=== PATIENT | female | born 1980 | race Caucasian/White ===

== ENCOUNTER 2022-02-26 16:18 | Outpatient (CLI) | payer BC, SELFPAY ==
[2022-02-26 16:58] LABS: Glucose* 91 mg/dL (60-115)
[2022-02-26 20:14] LABS: Free T4 Free Thyroxine* 0.93 ng/dL (0.70-1.85)
[2022-02-27 14:00] LABS: Iron* 24 ug/dL (37-170)
[2022-02-27 14:09] LABS: Percent Iron Saturation 4 % (20-50); Total Iron Binding Capacity 536 ug/dL (265-497)
[2022-02-27 14:36] LABS: Ferritin* 5.1 ng/mL (6.24-137.0)
== END 2022-02-26 16:19 | disposition home or self-care (01) ==
PROVIDERS: PCP Family Medicine; Visit Provider Registered Nurse
DX: Z01.419 Encounter for gynecological examination (general) (routine) without abnormal findings (principal); N92.0 Excessive and frequent menstruation with regular cycle
CPT/HCPCS: 82728; 82947; 83540; 83550; 84439; 84443

== ENCOUNTER 2022-03-07 13:53 | Outpatient (CLI) | payer BC, SELFPAY ==
--- NOTE | 2022-03-07 14:00 | CRLHL7_ITS ---
For Patients: As a result of the Century Cures Act, medical imaging exams and procedure reports are released immediately into your electronic medical record. You may view this report before your referring provider. If you have questions, please contact your health care provider. INDICATION: Menorrhagia COMPARISON: 07/13/2018 TECHNIQUE: 2D galo scale and color Doppler images were acquired of the pelvis using a transabdominal and transvaginal approach. FINDINGS: Sonographic images demonstrate an enlarged size and lobular outer contour of the uterus. Uterus measures 12.1 cm in length by 6.0 cm in AP diameter by 8.8 cm in transverse dimension. The myometrium has a heterogeneous echotexture. Anterior mid uterine fibroid measuring 3.9 x 3.5 x 3.6 cm. Lower uterine segment fibroid measuring 1.1 x 0.7 x 1.1 cm. Small fundal fibroid measuring 1.5 x 1.3 x 1.3 cm. Posterior uterine fibroid which abuts the endometrium measuring 5.9 x 4.8 x 5.2 cm. The size and number of the fibroids has increased since the prior exam. The endometrial lining measures 14 mm in composite thickness. The right ovary measures 3.4 x 1.7 x 2.5 cm in size and the left ovary measures 3.0 x 1.6 x 2.5 cm. The ovaries demonstrate normal arterial and venous blood flow on color Doppler analysis. There are no suspicious fluid collections within the cul-de-sac. IMPRESSION: Multiple uterine fibroids which have increased in size and number since the prior examination. The largest now measures 5.9 cm and abuts the endometrium which is thickened and measures 14 millimeters. Dictated by Pedro Linton MD @ 03/08/2022 8:31:57 AM (Electronically Signed)
== END 2022-03-07 13:54 | disposition home or self-care (01) ==
PROVIDERS: PCP Family Medicine; Visit Provider Registered Nurse
DX: N92.0 Excessive and frequent menstruation with regular cycle (principal); D25.9 Leiomyoma of uterus, unspecified
CPT/HCPCS: 76830; 76856

== ENCOUNTER 2022-07-08 13:48 | Outpatient (CLI) | payer OTHER, SELFPAY ==
--- NOTE | 2022-07-08 14:00 | CRLHL7_ITS ---
For Patients: As a result of the Century Cures Act, medical imaging exams and procedure reports are released immediately into your electronic medical record. You may view this report before your referring provider. If you have questions, please contact your health care provider. BILATERAL SCREENING MAMMOGRAM WITH COMPUTER-AIDED DETECTION TECHNIQUE: CC and MLO views were obtained. These mammographic images have been obtained using full-field digital technique. These mammographic images were interpreted with the benefit of computer-aided detection. COMPARISON FILM: 05/17/18 ??? LEFT FINDINGS: The breasts are heterogeneously dense, which may obscure small masses IMPRESSION: There is no radiographic evidence for malignancy. ASSESSMENT: BI-RADS Category 1: Negative RECOMMENDATION: Routine screening mammogram in 1 year. A lay language report of this examination will be provided to the patient. Pedro Linton M.D. Diagnostic Radiologist [email or web address] ELIAZAR/ronny jefferson/Dictated by: Pedro Linton MD @ 07/09/2022 10:11:00 AM (Electronically Signed)
== END 2022-07-08 13:49 | disposition home or self-care (01) ==
LOC: MAMMO 13:49
PROVIDERS: PCP Family Medicine; Visit Provider Registered Nurse
DX: Z12.31 Encounter for screening mammogram for malignant neoplasm of breast (principal); R92.2 Inconclusive mammogram
CPT/HCPCS: 77063; 77067

== ENCOUNTER 2023-02-26 08:05 | Day surgery (SDC) | payer OTHER, SELFPAY ==
[2023-02-26 08:17] VITALS: BMI 30.3
[2023-02-26 08:27] VITALS: BP 128/62; PULSE 78; RESP 16; TEMP 36.6; O2SAT 99
[2023-02-26] MEDS: SODIUM CHLORIDE 0.9 % (FLUSH) 10 ML SYRINGE IVF (08:28)
[2023-02-26] MEDS: LACTATED RINGERS 1000 ML 1,000 ML 100 ML IV (08:28)
[2023-02-26 08:40] LABS: Hemoglobin* 8.9 gm/dL (12.0-16.0)
[2023-02-26 08:52] LABS: Ur HCG Qualitative* Negative (Negative)
--- NOTE | 2023-02-26 09:56 | W.PM.H&PU ---
History & Physical Update History & Physical Update H&P Reviewed and patient assessed: The following changes are noted below H&P Updates: Kiersten reports no interval changes to her health history since the last time we spoke. Her hgb this AM was 8.9 gm/dl. This is a drop from 9.6 gm/dl last year. Patient does not endorse any symptoms of anemia such as fatigue, SOB, lightheadedness or dizziness. She feels that she is in her normal state of health. I suspect that this is due to the chronic nature of her anemia. She has not been taking her iron as prescribed. I encouraged her to take her PO iron every other day for at least a month, then we can reassess. Hopefully, with the endometrial ablation, she will have significant decrease in her bleeding. Physical exam: General: No acute distress Psych: Alert and oriented x3, full affect HEENT: Normocephalic, atraumatic. No conjunctival pallor. Lungs: Unlabored breathing CV: normal capillary refills bilaterally Neuro: No focal deficit. Mentating appropriately Pelvic exam: Deferred to OR.
--- NOTE | 2023-02-26 10:04 | W.ANESCHARGE ---
Anesthesia Charges Start Date/Time Anesthesia Start Date: 02/26/23 Anesthesia Start Time: 09:45 Stop Date/Time Anesthesia Stop Date: 02/26/23 Anesthesia Stop Time: 11:03
[2023-02-26 11:00] VITALS: BP 124/66; PULSE 81; RESP 16; TEMP 36.6; O2SAT 100
--- NOTE | 2023-02-26 11:02 | W.ANESCHARGE ---
Anesthesia Charges Start Date/Time Anesthesia Start Date: 02/26/23 Anesthesia Start Time: 09:45 Stop Date/Time Anesthesia Stop Date: 02/26/23 Anesthesia Stop Time: 11:03
[2023-02-26 11:15] VITALS: BP 122/76; PULSE 65; RESP 16; O2SAT 96
--- NOTE | 2023-02-26 11:22 | P.GYNPRC_ITS ---
Procedure Note Time Seen by Provider: 09:30 Date of procedure: 02/26/23 Anesthesia: MAC and local Surgeon: Jewels Vides MD Pathology: specimen obtained, sent to pathology (Endometrial curretting (endomemetrial polyp)) Condition: stable Disposition: PACU Procedure Description: Preoperative diagnosis: Kiersten is a 43 yo with abnormal uterine bleeding 2/2 to leiomyomas and possible adenomyosis. Postoperative diagnosis: Same with the addition of uterine fibroids. Procedure: Hysteroscopy, dilation and curettage, polypectomy, endometrial a blation. Anesthesia: Mac and paracervical block. Surgeon: Jewels Vides MD Assist: None Estimated blood loss: 5 mL IV Fluid: 600 mL Fluid deficit: 110 mL Urine output: 50 mL Specimen: Endometrial curettings, sent to path. Findings: On exam under anesthesia: The cervix and vagina appear normal. The uterus was anterior position, approximately 7 week size, mobile and without masses or nodularity palpable. Adnexa were without mass or fullness palpable bilaterally. On hysteroscopy: Anterior polyp noted near the left cornua and polyp noted posterior uterine cavity near endometrial canal. No other abnormalities noted. The uterus sounded to 9.5 cm. Cervical length 5 cm. Cavity length: 4.5. Procedure: Kiersten was taken to the operating room where conscious sedation was found to be adequate. She was placed in a dorsal lithotomy position and an exam under anesthesia was performed with the findings stated above. She was then prepped and draped in a normal sterile manner. An a bivalve is sterile speculum was placed in the vaginal canal. A paracervical block was placed using 1% lidocaine with epi: 5 mL were injected at the 4 and 8 o'clock positions on the cervix - 10 cc total. A long tenaculum clamp was placed on the anterior lip of the cervix. The cervix was then dilated to Hegar 6. Uterus sounded to 9.5 cm. The cervix measured 5 cm. There for the cavity length was 4.5 cm. The Truclear hysteroscope was advanced into the uterus. A diagnostic hysteroscopy performed with normal saline as the insufflation medium. Findings are stated above. The Truclear soft tissue incisor was then advanced into the camera. And the curettage/polypectomy performed with this incisor. The curettage took approximately 3 min. The cavity appeared normal once the curettage was performed completed. The hysteroscope was removed. The cervix was then dilated to Hegar 8. The Jennifer device was advanced into the uterus. The cavity check was completed and the ablation took place over 2 min. Patient received 30 mg of Toradol IV after the procedure. The Jennifer was removed, the hysteroscope readvanced to document ablation of the entire cavity. The hysteroscope was then removed. The tenaculum clamp removed from the anterior lip of the cervix. Hemostasis was excellent. The patient tolerated this procedure well. Sponge, lap and instrument counts were correct x2 at the end of the procedure and the patient was taken to the recovery area in stable condition.
[2023-02-26 11:30] VITALS: BP 114/75; PULSE 59; RESP 16; O2SAT 96
[2023-02-26 11:45] VITALS: BP 113/78; PULSE 60; RESP 16; O2SAT 97
== END 2023-02-26 12:05 | disposition home or self-care (01) ==
LOC: OR 08:05
PROVIDERS: PCP Family Medicine; Visit Provider Obstetrics & Gynecology
PROC: 0UF98ZZ Fragmentation in Uterus, Via Natural or Artificial Opening Endoscopic (ICD-10-PCS; CPT 58563; principal; 2023-02-26 09:30)
DX: N93.8 Other specified abnormal uterine and vaginal bleeding (principal); N84.0 Polyp of corpus uteri
CPT/HCPCS: 58563; 00952; 36415; 81025; 85018; 88305; J1100; J1885; J2405; J2704; J3010; J7120

== ENCOUNTER 2023-03-03 14:41 | Outpatient (CLI) | payer OTHER, SELFPAY | END 2023-03-03 14:42 | disposition home or self-care (01) | LOC: NFLDREF 03-05 05:56 | PROVIDERS: PCP Family Medicine; Referring Provider Family Medicine; Visit Provider Registered Nurse | DX: E03.9 Hypothyroidism, unspecified (principal) | CPT/HCPCS: 84439; 84443 ==

== ENCOUNTER 2023-04-09 15:03 | Outpatient (CLI) | payer BC, SELFPAY ==
--- NOTE | 2023-04-20 09:23 | ONC.NURNOTE ---
left message for patient to schedule IV INFed. Unable to reach patient.
== END 2023-04-09 15:04 | disposition home or self-care (01) ==
LOC: NFLDREF 04-16 11:09
PROVIDERS: PCP Family Medicine; Referring Provider Family Medicine; Visit Provider Registered Nurse
DX: E03.9 Hypothyroidism, unspecified (principal)
CPT/HCPCS: 82728; 84443

== ENCOUNTER 2023-05-18 10:00 | Outpatient (RCR) | payer BC, SELFPAY ==
--- NOTE | 2023-04-20 13:40 | URNOTE ---
Request received for authorization for?Iron Dextran (Infed) ([id number]). Prior authorization is not required per [facility] Ref#[id number], date range: 04/15/2023 to 05/28/2023.
[2023-05-18] VITALS (7 sets, daily range): BP systolic 93–112; BP diastolic 60–68; PULSE 57–77; RESP 16–18; TEMP 36.6–37.6; O2SAT 96–99
[2023-05-18] MEDS: IRON DEXTRAN COMPLEX 25 MG in 0.9 % SODIUM CHLORIDE 100 ml 100 ML 402 MG IVPB (10:34)
[2023-05-18] MEDS: IRON DEXTRAN COMPLEX 975 MG in 0.9 % SODIUM CHLORIDE 250 ml 250 ML 269.5 MG IVPB (12:07)
== END 2023-11-14 23:59 | disposition home or self-care (01) ==
LOC: CCIC 10:00
PROVIDERS: PCP Family Medicine; Visit Provider Clinical Nurse Specialist
DX: D50.9 Iron deficiency anemia, unspecified (principal)
CPT/HCPCS: 96365; 96366; J1750; J7050

== ENCOUNTER 2023-07-28 14:47 | Outpatient (CLI) | payer BC, SELFPAY ==
--- NOTE | 2023-07-28 15:00 | MM_ITS ---
Patient: HERB MCWILLIAMS Facility:?[facility] Patient ID:?[id number] Site Patient ID:?[id number]. Site :?[id number] Study:?XRay-Breast Bilateral 3D W/CAD-07/28/2023 3:09:43 PM Ordering Physician:Jewels Ann Final Report: BILATERAL SCREENING MAMMOGRAM WITH COMPUTER-AIDED DETECTION AND TOMOSYNTHESIS TECHNIQUE: CC and MLO views were obtained. These mammographic images have been obtained using full-field digital technique. These mammographic images were interpreted with the benefit of computer-aided detection. Breast Tomosynthesis was used in this interpretation. COMPARISON FILM: 07/08/22, 05/17/18. FINDINGS: The breasts are extremely dense, which lowers the sensitivity of mammography. IMPRESSION: There is no radiographic evidence for malignancy. ASSESSMENT: BI-RADS Category 1: Negative RECOMMENDATION: Routine screening mammogram in 1 year. A lay language report of this examination will be provided to the patient. Pedro Linton M.D. Diagnostic Radiologist [email or web address] ELIAZAR/sp R& Transcribed: 5:35 p.m. SP/Dictated by: Pedro Linton MD @ 07/29/2023 10:07:00 AM Signed by:?Pedro Linton MD @07/29/2023 6:52:54 PM (Electronic Signature)
== END 2023-07-28 14:48 | disposition home or self-care (01) ==
LOC: MAMMO 14:49
PROVIDERS: Visit Provider Obstetrics & Gynecology
DX: Z12.31 Encounter for screening mammogram for malignant neoplasm of breast (principal); R92.2 Inconclusive mammogram
CPT/HCPCS: 77063; 77067

== ENCOUNTER 2024-06-17 13:18 | Outpatient (CLI) | payer BC, SELFPAY | END 2024-06-17 13:19 | disposition home or self-care (01) | PROVIDERS: Visit Provider Obstetrics & Gynecology | DX: D64.9 Anemia, unspecified (principal); E03.9 Hypothyroidism, unspecified | CPT/HCPCS: 83540; 83550; 84443; 87624; 87625; 88141; 88142 ==

== ENCOUNTER 2024-07-07 15:08 | Outpatient (CLI) | payer BC, SELFPAY ==
[2024-07-11 13:00] LABS: HPV Source Cervical; HPV, High Risk by TMA Not Detected
== END 2024-07-07 15:09 | disposition home or self-care (01) ==
PROVIDERS: Visit Provider Obstetrics & Gynecology
DX: Z12.4 Encounter for screening for malignant neoplasm of cervix (principal); Z11.51 Encounter for screening for human papillomavirus (HPV)
CPT/HCPCS: 87624; 87625; 88141; 88142

== ENCOUNTER 2024-08-15 14:44 | Outpatient (CLI) | payer BC, SELFPAY ==
--- NOTE | 2024-08-15 15:00 | CRLHL7_ITS ---
For Patients: As a result of the Century Cures Act, medical imaging exams and procedure reports are released immediately into your electronic medical record. You may view this report before your referring provider. If you have questions, please contact your health care provider. INDICATION: BILATERAL SCREENING MAMMOGRAM, ASYMPTOMATIC 44 Y/O FEMALE COMPARISON: 07/28/2023, 07/08/2022, 05/17/2018 TECHNIQUE: Digital mammogram in CC and MLO projections including computer-aided detection (CAD) and tomosynthesis. BREAST COMPOSITION: The breasts are heterogeneously dense, which may obscure small masses. FINDINGS: No suspicious findings. ASSESSMENT: BI-RADS 1 Negative RECOMMENDATION: Annual screening mammogram. A lay language report of this examination will be provided to the patient. Dictated by: Pedro Linton MD @ 08/16/2024 08:34:06 (Electronically Signed)
== END 2024-08-15 14:45 | disposition home or self-care (01) ==
LOC: MAMMO 14:44
PROVIDERS: Visit Provider Obstetrics & Gynecology
DX: Z12.31 Encounter for screening mammogram for malignant neoplasm of breast (principal); R92.333 Mammographic heterogeneous density, bilateral breasts
CPT/HCPCS: 77063; 77067

== ENCOUNTER 2024-09-14 08:28 | Day surgery (SDC) | payer BC, SELFPAY ==
[2024-09-14] VITALS (21 sets, daily range): BP systolic 113–141; BP diastolic 62–93; PULSE 61–86; RESP 13–19; TEMP 36.3–37.4; O2SAT 93–100; BMI 25.9
[2024-09-14 08:52] LABS: Ur HCG Qualitative* Negative (Negative)
[2024-09-14] MEDS: SODIUM CHLORIDE 0.9 % (FLUSH) 10 ML SYRINGE IVF (09:24)
[2024-09-14] MEDS: SCOPOLAMINE 1 MG/3 DAY PATCH 1 PATCH TRANSDERMA (09:24)
[2024-09-14] MEDS: GABAPENTIN 600 MG TABLET PO (09:24)
[2024-09-14] MEDS: ACETAMINOPHEN 500 MG TABLET 1000 MG PO (09:24)
[2024-09-14] MEDS: LACTATED RINGERS 1000 ML 1,000 ML 100 ML IV ×3 (09:24→14:11)
[2024-09-14 09:27] LABS: Hemoglobin* 11.7 gm/dL (12.0-16.0)
[2024-09-14 09:48] LABS: Creatinine* 0.8 mg/dL (0.5-1.5); Est. Creatinine Clearance* 99.06; Estimated Glomerular Filt Rate 94 ml/min
--- NOTE | 2024-09-14 10:50 | W.PM.H&PU ---
History & Physical Update History & Physical Update H&P Reviewed and patient assessed: No changes noted H&P Updates: Current on her menstrual cycle. Reports heavy bleeding. Last 2 cycles have been manageable due to TXA but did not take for this cycle.
[2024-09-14] MEDS: CEFAZOLIN 1 GM inj 2 GM IVP (11:03)
[2024-09-14] MEDS: LIDOCAINE 1%-EPI 1:100,000 20 ML INFILTRATI (12:02)
--- NOTE | 2024-09-14 12:23 | P.ANES_ITS ---
Anesthesia Charges Start Date/Time Anesthesia Start Date: 09/14/24 Anesthesia Start Time: 10:52 Stop Date/Time Anesthesia Stop Date: 09/14/24 Anesthesia Stop Time: 15:02 Coding CPT Codes CPT Codes: ANESTH SURG LOWER ABDOMEN - 63690 ([id number]) P2 - PATIENT W/MILD SYST DISEASE, QK - TNT POWDER WORKER 2-4 CNCRNT ANES PROC, QX - FIFTH GRADE TEACHER SVC W/ MD MED DIRECTION
--- NOTE | 2024-09-14 12:23 | W.ANESCHARGE ---
Anesthesia Charges Start Date/Time Anesthesia Start Date: 09/14/24 Anesthesia Start Time: 10:52 Stop Date/Time Anesthesia Stop Date: 09/14/24 Anesthesia Stop Time: 15:02 Coding CPT Codes CPT Codes: ANESTH SURG LOWER ABDOMEN - 53357 ([id number]) P2 - PATIENT W/MILD SYST DISEASE, QK - UNDERGROUND UTILITY LOCATOR 2-4 CNCRNT ANES PROC, QX - VEHICLE DETAILER SVC W/ MD MED DIRECTION
--- NOTE | 2024-09-14 12:23 | W.PM.NB ---
Nerve Block Nerve Block Time Seen by Provider: 11:00 Date Seen: 09/14/24 Type of block requested by surgeon for post-operative analgesia: TAP Side: bilateral Time out performed: Yes Verification of patient name: Yes Verification of date of : Yes Site marking: site marked Name of person performing procedure: Emir Continuous monitoring Was continuous monitoring of O2 sat, B/P, registered nurse cardiac, recorded every 15 minutes?: Yes Procedure Checklist: sterile prep, needles and gloves Ultrasound guided. Images saved: Yes Medications given in 5ml increments after negative aspiration: Marcaine %: 0.25 mL: 30 Needle gauge: 20 and Exparel mL: 10 Patient tolerated procedure well: Yes Additional comments: Needle noted between internal oblique and transversus abdominus. Local spread visualized Block Charges Block Charge (with Pro Fee): TAP Bilateral Use of Ultrasound Machine for Block: Yes- US Guidance/pain block
--- NOTE | 2024-09-14 14:57 | P.PCNOB_ITS ---
Procedure Type of Hysterectomy: Total Laparoscopic Pre-op/Post-op diagnoses: Pre-Op/Post-Op Diagnoses Operation Date: 09/14/24 09:45 <No data on this case meets the specified criteria> Procedure: Procedures Operation Date: 09/14/24 09:45 Actual Procedure Side Surgeon p Total Laparoscopic Hysterectomy, Bilateral Salpingectomy, Cystoscopy Bilateral Jewels Vides MD Curriculum Writer: Shima Almonte Anesthesia Type: General and TAP Block Complications: none Fluids: crystalloid Fluid amount (mL): 2,400 Urine output (mL): 1,500 Weight of Uterus: 1 lb 1.108 oz Specimen: uterus, left tube and right tube Narrative: Findings: On exam under anesthesia: Normal appearing external genitalia. Normal appearing cervix. The uterus was anteverted, approximately 18 weeks size, mobile. Multiple fibroids palpated. Adnexa difficult to assess due to fibroid. On laparoscopy: Very enlarged, myomatous uterus with impressive vasculature congestion in the bilateral broad ligaments. Bilateral fallopian tubes with evidence of tubal ligation and normal ovaries. Filmy adhesions of bladder to previous hysterotomy scar. Filmy adhesions of the sigmoid colon to the left pelvic sidewall. Posterior cul-de-sac within normal limits. Normal appearing liver. Cystoscopy: The dome of the bladder was noted to be without defect and no evidence of any sutures from the vaginal cuff causing injury. Normal urine flow was noted through both ureteral orifices. Preoperative diagnosis: Kiersten is a 44-year-old 2 para 2 with abnormal uterine bleeding due to leiomyomas causing iron deficiency anemia. She failed endometrial ablation. The patient requested definitive management with a hysterectomy after discussing all possible options. Consent was signed in the office prior and all risks, benefits, and alternatives were reviewed. Postoperative diagnosis: Same Procedure: Kiersten was taken to the operating room where general anesthetic was found to be adequate. Tap block was also performed. She was placed in the dorsal lithotomy position and an exam under anesthesia was performed with findings stated above. She was then prepped and draped in a normal sterile manner. A Good catheter was placed. A bivalve speculum was placed in the vaginal canal. A long tenaculum clamp was placed on the anterior lip of the cervix, in the uterus sounded to 12 cm. A medium size Synqeraare uterine manipulator was then placed. The tenaculum clamp and speculum were removed from the cervix. Attention was then turned to performing the laparoscopic portion of the procedure. A vertical, infraumbilical 5 mm incision was made. A 5 mm trocar was then placed under direct visualization. The abdomen was then insufflated with CO2 gas to a pressure of 15 mm of mercury. The patient was then placed in steep Trendelenburg. Two pelvic ports were then placed approximately 3-4 finger breaths medial to the ischial crests. The trocar in the RLQ = 5mm, LLq = 11mm. These were placed under direct visualization. A 4th port was made in the patient's left lower quadrant, just superior medial to the left ASIS. A 5 mm Fios Kii port was inserted under direct visualization and without complication. The balloon on each of the 4 ports was inflated, holding each in place. Examination of the peritoneal cavity revealed no signs of injury from entry and findings as noted above. Attention was then turned to performing hysterectomy and bilateral salpingectomy. The left fallopian tube was grasped, dissected of the left ovary and removed with sequential pedicles using the ligasure [place] tip dissecting forceps. It was bisected at the site of the tubal stump from previous tubal ligation. Fallopian tube was removed from the abdominal cavity. The left side of the hy sterectomy was performed using the ligasure dissecting forceps. The 1st pedicles were starting with the round ligament that was cauterized and and bisected. In sequence show pedicles were formed to divide the utero-ovarian ligament. Then sequential pedicles were made through the broad ligament. The posterior leaf of the broad ligament was then divided and sequential pedicles and carried down to the level of the VCare cup. The anterior leaf of the broad ligament was then divided down to the level of the anterior aspect of the VCare cup and a bladder flap created. The uterine vessels were then skeletonized. The uterine vessels were then cauterized and divided. Then excess tissue was cleared over the top of the VCare cup using the dissecting forceps. The right salpingectomy and right side of the hysterectomy were then performed in a similar manner. The Ligasure DocDoclab pen with the spatula attachment was then used to perform the colpotomy incising around the VCare cup. The uterus was debulked vaginally and removed successfully via vaginal route as well. No vaginal lacerations noted. Vaginal occluder placed. The vaginal cuff was then reapproximated using 2-0 V lock suture in a running manner. All the pedicles and vaginal cuff were then closely visualized and hemostasis obtained with bipolar cautery using the LigaSure dissecting forceps or the DocDoclab pen with the spatula. Sanjay applied on vaginal cuff. Excellent hemostasis noted. The Good catheter was briefly removed. A diagnostic cystoscopy was performed using normal saline as the insufflation medium. Findings noted from above. Fluorescein IV was given intraoperatively to visualize the urine more easily. Good catheter was then replaced to be retained until removal on POD#1. Attention was then returned to the abdomen where hemostasis was verified. The CO2 pressure decreased to 5mmHG and hemostasis verified. The fascia in the LLQ incision was approximated with 0-Vicryl suture using the Beau Troncoso fascial closure device. This was closed under direct visualization with the laparoscope. All trocars were removed under direct visualization. CO2 gas was allowed to escape the infraumbilical port prior to its removal. All skin incisions were re- approximated using 4-0 Monocryl in a running subcuticular manner, Exophin skin adhesive gel and adhesive bandages placed. The patient tolerated this procedure well. Sponge, lap and instrument counts were correct x2 at the end of the procedure and the patient was taken to the recovery area in stable condition. The patient received 2gm IV ancef prior to the start of the procedure and 2 g of Ancef was re-dosed at the end of the procedure due to extensive debulking performed vaginally to remove the uterus. Surgical debrief and specimen review performed.
--- NOTE | 2024-09-14 15:28 | P.ANES_ITS ---
Anesthesia Charges Start Date/Time Anesthesia Start Date: 09/14/24 Anesthesia Start Time: 10:52 Stop Date/Time Anesthesia Stop Date: 09/14/24 Anesthesia Stop Time: 15:02 Coding CPT Codes CPT Codes: ANESTH SURG UPPER ABDOMEN - 20383 ([id number]) P2 - PATIENT W/MILD SYST DISEASE, QK - RELAY TELEGRAPHER 2-4 CNCRNT ANES PROC, QX - INSTRUMENT TECHNOLOGIST SVC W/ MD MED DIRECTION
--- NOTE | 2024-09-14 15:28 | W.ANESCHARGE ---
Anesthesia Charges Start Date/Time Anesthesia Start Date: 09/14/24 Anesthesia Start Time: 10:52 Stop Date/Time Anesthesia Stop Date: 09/14/24 Anesthesia Stop Time: 15:02 Coding CPT Codes CPT Codes: ANESTH SURG UPPER ABDOMEN - 61628 ([id number]) P2 - PATIENT W/MILD SYST DISEASE, QK - DISTRICT ATTORNEY 2-4 CNCRNT ANES PROC, QX - CHIEF ARCHITECT SVC W/ MD MED DIRECTION
[2024-09-14] MEDS: LACTATED RINGERS 1000 ML 1,000 ML 40 ML IV (15:52)
[2024-09-14] MEDS: IBUPROFEN 600 MG TABLET PO ×2 (18:04→23:16)
--- NOTE | 2024-09-14 23:19 | PC.NURSE ---
shift note: The pt has been alert and oriented; denied chest pain and short of breath; Spo2 has been in the 90s in RA. The lap abdominal incision sites x4 glued and intact without any bleeding or drainage. The pt has been reporting 0-1/10 abdominal pain- the pt pain had been managed with active ice. The pt are regular diet- tolerated the diet well without any nausea or vomiting. The pt was up to chair and sat in the chair for 1 hour plus - tolerated the activity without any issues. Good is patent draining 1150 ml of yellowish urine. The pt appeared without any acute distress
[2024-09-15 02:41] VITALS: BP 120/72; PULSE 69; RESP 16; TEMP 37.2; O2SAT 98
[2024-09-15] MEDS: IBUPROFEN 600 MG TABLET PO ×2 (04:51→10:12)
--- NOTE | 2024-09-15 05:31 | PC.NURSE ---
Shift note: Patient is doing well ambulating independently in room and SBA in hallway. No pain reported since 1899. Scheduled Ibuprofen given. LAP sites intact, clean and dry. Active bowel sound. Pt denied passing gas. Good intact and draining light yannick colored clear urine. Vitally stable. Patient had adequate sleep.
[2024-09-15 07:00] VITALS: PULSE 67; RESP 16
[2024-09-15 07:20] LABS: Hemoglobin* 10.2 gm/dL (12.0-16.0)
[2024-09-15 07:45] LABS: Creatinine* 0.8 mg/dL (0.5-1.5); Est. Creatinine Clearance* 99.06; Estimated Glomerular Filt Rate 94 ml/min
--- NOTE | 2024-09-15 08:30 | P.DS_ITS ---
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 Indication for surgery: Fibroid uterus, likely adenomyosis, menorrhagia. Intraoperative findings: On exam under anesthesia: Normal appearing external genitalia. Normal appearing cervix. The uterus was anteverted, approximately 18 weeks size, mobile. Multiple fibroids palpated. Adnexa difficult to assess due to fibroid. On laparoscopy: Very enlarged, myomatous uterus with impressive vasculature congestion in the bilateral broad ligaments. Bilateral fallopian tubes with evidence of tubal ligation and normal ovaries. Filmy adhesions of bladder to previous hysterotomy scar. Filmy adhesions of the sigmoid colon to the left pelvic sidewall. Posterior cul-de-sac within normal limits. Normal appearing liver. Cystoscopy: The dome of the bladder was noted to be without defect and no evidence of any sutures from the vaginal cuff causing injury. Normal urine flow was noted through both ureteral orifices. She had an uncomplicated surgery. Reviewed surgery with patient we were able to remove uterus vaginal after removing a few fibroids to decompress the uterus. She is grateful we did not have convert to an open procedure. Postoperative course has been uneventful. She has minimal pain and very pleased with her pain control so soon after surgery. Vitals have been stable. She has remained afebrile. Today, on postoperative day 1, she reports the pain is well controlled. She has been able to ambulate Without difficulty. She is tolerating regular diet. She is passing flatus. Sorensen catheter has been removed, and she is voiding without difficulty. She will continue on her PO iron as she is anemic at 10.2 gm/dL. However, I anticipate good recovery as she will no long have ongoing blood loss. Time Spent with Patient Time attestation: Total time spent providing and/or coordinating discharge services: TEAMCENTER SOLUTION ARCHITECT - Exam Physical Exam: Vital signs: Temp Pulse Resp BP Pulse Ox O2 Del Method 99 F 69 16 120/72 98 Room Air 09/15/24 02:41 09/15/24 02:41 09/15/24 02:41 09/15/24 02:41 09/15/24 02:41 09/15/24 02:41 TEAMCENTER SOLUTION ARCHITECT - DS: Data Data Completed and Pending Labs on day of discharge: Labs from last 24 hours 09/15/24 09/14/24 09/14/24 06:48 09:18 08:30 Hgb 10.2 L 11.7 L Creatinine 0.8 0.8 Estimated Creat Clear 99.06 99.06 Estimated GFR 94 94 Urine HCG, Qual Negative Blood Type B Positive Antibody Screen NEGATIVE Procedures Procedures: Procedures Operation Date: 09/14/24 09:45 Actual Procedure Side Surgeon p Total Laparoscopic Hysterectomy, Bilateral Salpingectomy, Cystoscopy Bilateral Jewels Vides MD Complications: none Discharge Plan Discharge Disposition: Home w/ Parent or Adult Discharging Surgeon: Jewels Vides Follow-Up Appointment: 09/28/24@1245 and 10/21/24@[address] Vides Prescriptions: New acetaminophen 500 mg Tablet 1,000 mg PO Q6H PRNQty: 60 0RF docusate sodium 100 mg Capsule 100 mg PO BID PRN (Reason: Constipation) 30 Days Qty: 30 0RF ibuprofen 600 mg Tablet 600 mg PO Q6H PRN (Reason: Abdominal Pain) 30 Days Qty: 60 0RF oxycodone 5 mg Tablet 5 mg PO Q6H PRN (Reason: Moderate Pain) 14 Days Qty: 20 0RF Continued ketoconazole 2 % shampoo 1 applic topical 2XW PRN (Reason: eczema) Qty: 120 2RF levothyroxine 125 mcg tablet 125 mcg PO DAILY Qty: 90 0RF Rx Instructions: Please call the [facility] at [phone] to schedule your annual exam previous to requiring any further refills. Patient Instructions: Scopolamine (Absorbed through the skin) (Transderm Scop), Acetaminophen (By mouth), Ibuprofen (By mouth), Laxative, Stimulant (By mouth), Oxycodone, Rapid Release (By mouth), General Anesthesia (DC), Hysterectomy (DC) Additional Instructions: LAPAROSCOPY POSTOPERATIVE INSTRUCTIONS ACTIVITY Walking is encouraged, even if it is just short distances. Try to walk up to 6 times during the day. You may climb stairs as tolerated, but not for exercise. If you have a lengthy trip home after surgery, for 5 minutes or so every hour. To not participate strenuous activities, such as aerobic exercise. No heavy lifting/pushing/pulling for 4-6 weeks. Do not lift anything more than about 15 lbs (such as laundry, groceries, children, pets), vacuum, push heavy doors or grocery carts, etc. Do not put anything in the vagina for 6-8 weeks after surgery unless otherwise instructed by your doctor (including tampons, douching, sexual intercourse, etc). No driving for about 2 weeks after surgery, while you are taking narcotic pain medication, or until you feel that you are ready. Practice checking your blind spot and stepping hard on the brake. Avoid sitting or lying in bed for more than 2 hours at a time while you are awake to reduce your risk of blood clots. You may return to work when directed by your physician. Please contact your doctor if you need any return to work letters or medical leave paperwork to be completed. WOUND CARE You will have 4 small incisions on your abdomen. There will be dissolvable stitches under your skin that do not need to be removed. Shower daily after surgery. Clean your incision with mild antibacterial soap and water. Pat your incision dry with a clean towel. No tub baths until wound is completely healed. Wash your hands frequently, especially before touching your incision, changing any dressings, after using the restroom, and before eating. Avoid wearing tight clothing over your incision. Readable, loose clothing is more comfortable. Do not use hot tub, whirlpool or go swimming unless otherwise instructed by your health care provider. PAIN MANAGEMENT Take your oral pain medication as needed. You should be taking Ibuprofen 600mg every 6 hours with 1000 mg of Tylenol every 6 hours. You can take these together every six hours or alternate them every 3 hours. You should then take the oxycodone as needed if you have breakthrough pain on top of the Tylenol and Ibuprofen. Some pain medications can cause constipation so you should take a stool softener (i.e. colace/senna) while you are on these medications. You may also take milk of magnesia or Miralax for constipation. AP take narcotic medications for pain, do not: Fine Chemicals Operator operate motorized vehicles/equipment, drink alcoholic beverages, make important decision or sign legal documents. WHAT TO EXPECT AT HOME Recovery from surgery is generally 2-4 weeks, but sometimes longer for more strenuous activity. It is normal to be very tired during this time. It is normal to have some drainage or a small amount of vaginal bleeding after surgery which may last up to 8 weeks. You may go home with a sorensen catheter in your bladder. If so, you will need to follow up for a nurse visit in 7-10 days for removal. You will most likely experience gas pain, abdominal swelling, or shoulder pain for 24-72 hours after surgery. This is from the carbon dioxide gas put into your abdomen to better visualize your organs. A warm shower, heating pad, and/or walking may help. WHEN TO CALL YOUR DOCTOR : Fever (>100.4?F or 38.0?C) or chills. Incision problems such as redness, warmth, swelling, or foul-smelling drainage. Severe nausea or persistent vomiting. Bright red vaginal bleeding (soaking >2 pad/hour) or foul-smelling vaginal drainage. Severe pain not relieved with pain medication. Pain and swelling in your legs, especially if it is only on one side and not the other. Pain with urination, cloudy urine, or foul-smelling urine. Or if you have any other problems or questions. CALL 911 OR GO TO THE EMERGENCY ROOM IF YOU HAVE: Any shortness of breath, difficulty breathing, or chest pain. Follow-up: Maryam Lacey CNP [Primary Care Provider, Family Practice] Jewels Vides MD [Staff Physician, MARKETING ADMINISTRATOR] - 09/28/24 12:45 pm Referral Note: First appointment September 28, 2024 @12:45pm. Second appointment October 21, 2024 @10:00am Discharge Orders: Discharge Order (Routine); Ordered 09/15/24 Ordered By: Jewels Vides
[2024-09-15 08:31] VITALS: BP 123/78; PULSE 67; RESP 16; TEMP 36.8; O2SAT 100
[2024-09-15] MEDS: ACETAMINOPHEN 500 MG TABLET 1000 MG PO (08:49)
--- NOTE | 2024-09-15 16:43 | PC.NURSE ---
Discharge-- Very pleasant and cooperative, alert and oriented patient discharged to home ambulatory with at approximately 1300. VSS and pt is afebrile. SPO2 maintained >90% on RA. Pain appears well managed with Motrin and Tylenol alternating. Lap sites x4 CHINO and appear to be healing well. Discharge education provided including diagnosis info, symptoms to report, medications and follow up plan. No further questions asked and SL was removed with tip intact.
== END 2024-09-15 13:05 | disposition home or self-care (01) ==
LOC: OR 08:29 → MEDSURG 08:30
PROVIDERS: Anesthesiology; PCP Registered Nurse; Visit Provider Obstetrics & Gynecology
PROC: 0UT94ZZ Resection of Uterus, Percutaneous Endoscopic Approach (ICD-10-PCS; CPT 58573; principal; 2024-09-14 09:45)
DX: N80.03 Adenomyosis of the uterus (principal); D25.9 Leiomyoma of uterus, unspecified; N93.8 Other specified abnormal uterine and vaginal bleeding; D62 Acute posthemorrhagic anemia; G89.18 Other acute postprocedural pain; E03.9 Hypothyroidism, unspecified
CPT/HCPCS: 58573; 00790; 00840; 36415; 64488; 76942; 81025; 82565; 85018; 86850; 86900; 86901; 88307; A4314; A9270; J0665; J0666; J0690; J1100; J2250; J2405; J2704; J3010; J3475; J3490; J7120

== ENCOUNTER 2025-03-11 15:53 | Emergency (ER) | payer BC, SELFPAY ==
--- OUTSIDE RECORDS SUMMARY | 2025-03-11 15:54 | XMS_ITS | Clinical Summary ---
Author Organization [facility] Address [address], [place] [address] Care Team Providers Care Injection Molding Engineer Name Role Phone Unassigned, Provider Primary Care Provider Unava ilable Source Comments You are receiving this document as you are listed as the primary care provider,follow-up provider, or the patient has been referred to you for consultation.This is in compliance with the Medicare andMedicaid EHR Incentive Program,which states Providers who transition their patient to another setting of careor provider of care or refers their patient to another provider of care shouldprovide summary care record for each transition of care or referral. [facility] Allergies No known active allergies Medications MedicationSigDispense QuantityRefillsLast FilledStart DateEnd DateStatus levothyroxine (SYNTHROID) 112 MCG tablet Take 112 mcg by mouth daily.Active Social History Tobacco UseTypesPacks/DayYears UsedDateSmoking Tobacco: NeverSmokeless Tobacco: NeverCommentsUnknownSex and Gender InformationValueDate RecordedSex Assigned at BirthNot on fileLegal JpcPhpoen65/28/2012 2:58 PM CSTGender Identity Not on fileSexual OrientationNot on file Last Filed Vital Signs Vital SignReadingTime TakenCommentsBlood Mprqpjvh90/78006/11/2019 12:55 PM CDT Pulse--Fdasjkdrfnt04.7 ??C (98 ??F)06/11/2019 12:55 PM CDTRespiratory Rate-- Oxygen Saturation--Inhaled Oxygen Concentration--Qmpanr64.2 kg (190 lb) 06/11/2019 12:55 PM KFAPzeclv883.8 cm (5' 10)06/11/2019 12:55 PM CDTBody Mass Index27.26006/11/2019 12:55 PM CDT Plan of Treatment Health MaintenanceDue DateLast DoneCommentsCervical Cancer Screening Due 1982Hep C Screening (Preventive Services)1980 8027Jbctwpzru1982HIV Screening (Preventive Services)1998Adult Preventive Visit02/01/2000HepB Vaccine (1)2001COVID-19 Vaccine (3 - season)/12/2020, 05/09/2020Influenza Vaccine (#1)/03/2019, 01/21/2019DTaP/Tdap/Td Vaccine (3 - Tdap), 02/15/2010Zoster/Shingles Vaccine (1 of 2)02/01/2032HPV Vaccine (No Doses Required)CompletedHepA VaccineAged OutNo longer eligible based on patient's age to complete this topicHib VaccineAged Out No longer eligible based on patient's age to complete this topicIPV (Polio) VaccineAged OutNo longer eligible based on patient's age to complete this topic MCV4 VaccineAged OutNo longer eligible based on patient's age to complete this topicMeningococcal B VaccineAged OutNo longer eligible based on patient's age to complete this topicPneumococcal VaccineAged OutNo longer eligible based on patient's age to complete this topic Insurance Care Teams Team MemberRelationshipSpecialtyStart DateEnd Date Unassigned, Provider [address] [place] [address] PCP - Yaron Physician Gswepdcii70/28/12
--- OUTSIDE RECORDS SUMMARY | 2025-03-11 15:55 | XMS_ITS | Clinical Summary ---
Author Organization [employer] [facility] Address [address] [place] [address] Care Team Providers Care Blow Molder Name Role Phone Pcp, No Primary Care Provider Unavailabl e Allergies No known active allergies Medications MedicationSigDispense QuantityRefillsLast FilledStart DateEnd DateStatus ferrous sulfate, 65 mg elemental, tablet Take 1 tablet by mouth once daily with a meal.Active ketoconazole 2% shampoo (NIZORAL) 2 % shampoo Apply 4 mL topically to affected area(s).04/15/2022ctive Arthritis Pain Reliever 650 mg Extended-Release tablet Take 650 mg by mouth every 8 hours if needed.02/26/2023ctive ibuprofen (ADVIL; MOTRIN) 600 mg tablet Take 600 mg by mouth every 6 hours if needed.02/26/2023ctive levothyroxine (SYNTHROID) 125 mcg tablet Take 125 mcg by mouth once daily.09/10/2023ctive hydrocortisone (ANUSOL-HC SUPPOSITORY) 25 mg suppository Indications:Rectal irritationInsert 1 Suppository (25 mg) rectally two times daily. 12 Suppository 11/20/2023ctive Active Problems ProblemNoted DateDiagnosed DateUnspecified vhhocljnbsafbx17/03/2012 Family History Medical HistoryRelationNameCommentsHypertensionFatherHyperlipidemiaMother Psychiatric illnessMotherGood HealthSisterRelationNameStatusCommentsFatherMother Sister Social History Tobacco UseTypesPacks/DayYears UsedDateSmoking Tobacco: WuqdqlLzyezgulag8Tuna: 05/19/2012Smokeless Tobacco: Never Tobacco Cessation:Counseling Given: Yes Alcohol UseStandard Drinks/WeekCommentsYes4 (1 standard drink = 0.6 oz pure alcohol)PHQ-2AnswerDate RecordedPHQ-2 Ccdri119Social ConnectionsAnswer Date RecordedDo you often feel lonely or isolated from those around you?0 11/20/2023Financial Resource StrainAnswerDate RecordedDifficulty of Paying Living Kswilkfs459ifficulty of Paying Living ExpensesNot on file 11/20/2023Food InsecurityAnswerDate RecordedDo you worry your food will run out before you are able to buy more?Transportation NeedsAnswerDate RecordedDoes lack of transportation keep you from medical appointments?1 11/20/2023oes lack of transportation keep you from work, meetings or getting things that you need?Housing StabilityAnswerDate RecordedWhat is your housing situation today?UtilitiesAnswerDate RecordedDo you have trouble paying for utilities (for example, heat, electricity, water, phone)?1 11/20/2023CommentsNoSex and Gender InformationValueDate RecordedSex Assigned at BirthNot on fileLegal NneAzufzm17/14/2013 8:43 AM CSTGender Identity Not on fileSexual OrientationNot on file Last Filed Vital Signs Vital SignReadingTime TakenCommentsBlood Leuljjvy532/6908 10:41 AM CDT Hqjxx107111/20/2023 10:41 AM CAPUexdhpkhrzj06.4 ??C (97.5 ??F)02/16/2023 3:13 PM CSTRespiratory Iqbx710904/18/2022 3:13 PM CSTOxygen Ofvucamwfg73%11/20/2023 10:41 AM CDTInhaled Oxygen Concentration--Ljqxeg63.6 kg (182 lb 3.2 oz)11/20/2023 10:41 AM UBZJhgpuo151.8 cm (5' 8.82)02/16/2023 3:13 PM CSTBody Mass Index27.05 02/16/2023 3:13 PM LOSS PREVENTION OFFICER Plan of Treatment Health MaintenanceDue DateLast DoneCommentsTetanus iohdohj6801/31/1993HIV for age 15-6501/31/1997Hepatitis C screening for age 18-7902/01/2000Hepatitis B series for 19+ (1 of 3 - 19+ 3-dose series)2001HPV series for age 9-45 (1 - 3- dose SCDM series)2009Depression screening for age 12+ Pap test for age 21-65, 01/06/2018BMI (ht and wt on same day) for age 18+/, 04/30/2018, 01/05/2018, Additional history existsCOVID-19 vaccine series ( season)/06/2021, 05/02/2021, 06/06/2020, Additional history existsInfluenza Vaccine (#1) 11/28/2024Pneumococcal series for age 6-49Aged OutNo longer eligible based on patient's age to complete this topic Procedures Procedure NamePriorityDate/TimeAssociated DiagnosisCommentsGYN THIN PREP PAP SCREEN RJLMCHJbkwska44/10/2018 9:45 AM CDT from Last 3 Months or Most Recently Relevant to Health Maintenance Results * GIZZARD SKIN REMOVER THIN PREP PAP SCREEN IMAGED (01/06/2018 9:45 AM CDT)ComponentValueRef RangeTest MethodAnalysis TimePerformed AtPathologist SignatureCase Report Gynecologic Cytology Report ? Case: [id number] ? Authorizing Provider: ??Roemlia Manuel NP ? Collected: ? 01/06/201845 ? First Screen: ?Digna Andrews ?Received: ? Specimen: ?GIZZARD SKIN REMOVER ThinPrep Vial Screening, Cervical/Vaginal ? 01/15/2018 1:49 PM [facility] INTERPRETATION/RESULTNEGATIVE FOR INTRAEPITHELIAL LESION OR MALIGNANCY (NIL) (none)01/15/2018 1:49 PM [facility] at 1349 CDTSPECIMEN [facility] for [facility] Endocervical component neogzqt5401/15/2018 1:49 PM [facility] LAB[facility]ATORYHPV REQUESTHPV and PAP01/15/2018 1:49 PM [facility] LAB[facility]ATORYDate of LMP 1:49 PM [facility] LABORATORYLast Pap Date 1:49 PM CDT [facility]ORYLast Pap OmumobSLI92/19/2018 1:49 PM [facility] LABORATORYComment:-HPVAutomated Review Fpmkcedhqa31/19/2018 1:49 PM [facility] Comment:Specimen processed successfully by automated vice president investor relations device, ThinPrep Imaging System, [employer]ANCILLARY TESTING GYNHPV Ordered, Please see separate qycwrb2501/15/2018 1:49 PM [facility] NoteThe pap test is a screening technique, not a diagnostic procedure. ??It is used primarily to screenfor squamous cancers and precursor lesions. ??Published studies have shown that it is subject to both false negative and false positive results. ??The pap test should not be used as the sole means todiagnose or exclude pre-malignant and malignant lesions. Cytology is screened and interpreted at [facility] - [address], [place] [address] and [facility] - [address] [place] [address]; [place] [address] and [facility] - [address]; [place] [address] and [facility] [address]; [place] [address] 01/15/2018 1:49 PM [facility]-CENTRAL LABORATORYSpecimen (Source)Anatomical Location / LateralityCollection Method / VolumeCollection TimeReceived TimeOther (Cervical/Vaginal)01/06/2018 9:45 AM CDT1 2:08 PM CDT Narrative Authorizing ProviderResult TypeResult StatusJill Tran Manuel NP PATHOLOGY/CYTOLOGYFinal ResultPerforming OrganizationAddressCity/State/ZIP Code Phone Number [facility] [address] [place] [address], from Last 3 Months or Most Recently Relevant to Health Maintenance Insurance * Guarantor: Kiersten Becker TypeRelation to PatientDate of PhoneBilling AddressPersonal/RedvkvOrkz1982 [id number] [address] [place] [address] Care Teams Team MemberRelationshipSpecialtyStart DateEnd Date Marie Young - General06/28/24
[2025-03-11 16:24] VITALS: BP 125/79; PULSE 78; RESP 18; TEMP 36.5; O2SAT 98; BMI 26.9
--- NOTE | 2025-03-11 18:21 | ED.GENADULT ---
HPI - General Adult General Chief complaint: Shortness of Breath/Dyspnea Stated complaint: has pneumonia, shortness of breath, dizzy Time Seen by Provider: 03/11/25 18:19 History of Present Illness HPI narrative: pt seen in urgent care Thursday, started on amoxicillin for a pneumonia, feels more short of breath , told to follow up in ED if worse, history of sports induced asthma, has productive cough 45-year-old woman presenting to the emergency department with concern shortness of breath and dizziness. Was thought to have a community-acquired pneumonia when seen 3 days ago in urgent care. Had been noting productive cough fevers body aches headache at that time. Swabbed and negative for COVID flu and RSV. Chest x-ray two view at that time suggested that was possibly developing right lung pneumonia. In was given amoxicillin 1000 mg 3 times daily for 5 days. She has been taking this medication. She is feeling more short of air or is if she has to remove for her sweatshirt that from the front of her neck. Feels a tightness here. Not having difficulty swallowing. No swelling. Has not had a fever. Illness now has been going on probably at least 10 days. More remotely with sports induced asthma but admittedly we was not used to running distances doing primarily weight events. Does feel like her ears are full. Does admit the lost her voice a few days ago but now better. Related Data Home Medications ?Medication ?Instructions ?Recorded ?Confirmed multivitamin 1 tab PO QAM 09/28/24 10/21/24 magnesium glycinate 100 mg (as 100 mg PO QDAY 10/21/24 10/21/24 glycinate) tablet Previous Rx's ?Medication ?Instructions ?Recorded ketoconazole 2 % shampoo 1 applic topical 2XW PRN eczema 04/15/22 #120 mL levothyroxine 125 mcg tablet 125 mcg PO DAILY #90 tabs 12/12/24 amoxicillin 500 mg capsule 1,000 mg (2 x 500 mg) PO TID 5 03/08/25 days #30 caps Allergies Allergy/AdvReac Type Severity Reaction Status Date / Time No Known Drug Allergies Allergy Verified 03/08/25 11:20 Review of Systems Status of ROS: Reports: 6 or more systems reviewed and unremarkable except as noted in History and below [facility] Medical History Menorrhagia ?N92.0 - Excessive and frequent menstruation with regular cycle (ICD-10) History of anemia ?Z86.2 - Personal history of diseases of the blood and blood-forming organs and certain disorders involving the immune mechanism (ICD-10) History of hypothyroidism ?Z86.39 - Personal history of other endocrine, nutritional and metabolic disease (ICD-10) Dysmenorrhea ?N94.6 - Dysmenorrhea, unspecified (ICD-10) Hypothyroid ?E03.9 - Hypothyroidism, unspecified (ICD-10) Anemia ?D64.9 - Anemia, unspecified (ICD-10) Iron deficiency ?E61.1 - Iron deficiency (ICD-10) Uterine fibroid ?D25.9 - Leiomyoma of uterus, unspecified (ICD-10) Adenomyosis ?N80.03 - Adenomyosis of the uterus (ICD-10) Asthma ?J45.909 - Unspecified asthma, uncomplicated (ICD-10) Surgical History History of oral surgery ?Z98.890 - Other specified postprocedural states (ICD-10) History of bilateral ligation of fallopian tubes ?Z98.51 - Tubal ligation status (ICD-10) History of 2 sections ?Z98.891 - History of uterine scar from previous surgery (ICD-10) Family History Father High cholesterol High blood pressure Mother Depression Osteoporosis Thyroid disease Maternal Grandmother Breast cancer Skin cancer Ovarian cancer Maternal Grandfather Skin cancer Paternal Grandmother Thyroid disease Aunt Thyroid disease Social History Narrative: (Noel). What is your current living situation?: I presently have a place to live Problems where you live: no known problems In the past 12 months, utilities in danger of being shut off: no In past 12 months, lack of transportation kept you from medical appts, meetings, work, or getting things needed for daily living: no In the past 12 mos, have been you worried that your food would run out before you had money to buy more?: never true In the past 12 mos, the food you bought just didn't last and you didn't have money to buy more?: never true Smoking Status: Never smoker How often do you have a drink containing alcohol: monthly or less AUDIT-C Alcohol total score: 1 Non-prescribed substance use: marijuana (any form) Non-prescribed substance use details: occ. Caffeine: Yes (coffee) How often does anyone, including family, friends and others, physically hurt you: never How often does anyone, including family, friends and others, insult or talk down to you: never How often does anyone, including family, friends and others, threaten you with harm: never How often does anyone, including family, friends and others, scream or curse at you: never Exam Narrative: Exam Narrative: Pleasant. NAD. Tall, larger stature. Sounds borderline stridorous with inhalation. Restricted. No wheeze though there was one squeak in the right middle lung on inspiration. Oropharynx is unremarkable. Neck is supple without lymphadenopathy. Extremities are well perfused without edema. TMs are clear. No facial swelling erythema or tenderness. Const: Vital Signs, click to edit/add: Vital Signs - 24 hr 03/11/25 16:24 03/11/25 20:00 Temperature 97.7 F Pulse Rate 78 Pulse Rate [Right Pulse Oximeter] 78 Respiratory Rate 18 16 Blood Pressure 111/75 Blood Pressure [Ri ght Upper Arm] 125/79 Pulse Oximetry 98 97 Oxygen Delivery Me thod Room Air Documenting provider has reviewed patient's vital signs: yes Course Vital Signs Vital signs: Initial Vital Signs Temperature 97.7 F 03/11/25 16:24 Temperature Source Temporal Artery Scan 03/11/25 16:24 Pulse Rate 78 03/11/25 16:24 Respiratory Rate 18 03/11/25 16:24 Blood Pressure 125/79 03/11/25 16:24 Blood Pressure Mean 94 03/11/25 16:24 Blood Pressure Position Sitting 03/11/25 16:24 Pulse Oximetry 98 03/11/25 16:24 Oxygen Delivery Method Room Air 03/11/25 16:24 Vital Signs Temperature 97.7 F 03/11/25 16:24 Pulse Rate 78 03/11/25 16:24 Respiratory Rate 18 03/11/25 16:24 Blood Pressure 125/79 03/11/25 16:24 Pulse Oximetry 98 03/11/25 16:24 Oxygen Delivery Method Room Air 03/11/25 16:24 Temperature 97.7 F 03/11/25 16:24 Pulse Rate 78 03/11/25 20:00 Respiratory Rate 16 03/11/25 20:00 Blood Pressure 111/75 03/11/25 20:00 Pulse Oximetry 97 03/11/25 20:00 Oxygen Delivery Method Room Air 03/11/25 16:24 Medical Decision Making MDM Narrative Medical decision making narrative: Appears to have recently experienced some laryngitis. I do review urgent care notes from 3 days ago. I review imaging as well. I do not see evidence of abscess and does not have symptoms to suggest more significant pharyngitis. Perhaps this is the stridor that is primarily contributing to her sensation here today. With worsening symptoms though now 3 days beyond last imaging with suggestion of close follow-up imaging, would repeat x-ray here today. With normal vitals I do not think need to do laboratory evaluation otherwise. Symptoms not seem consistent with pulmonary embolus. I suppose could look for pneumothorax which could be causing some of these throat symptoms. Two-view chest x-ray independently reviewed by me does show more prominent perihilar markings but I am not convinced of worsening pneumonia. Cardiac border is maintained. I would however consider expanding antibiotic coverage for treatment of community-acquired pneumonia. I would also consider treatment with prednisone for residual symptoms, laryngitis. Radiology over-read below INDICATION: Increasing shortness of breath. TECHNIQUE: Chest 2 views. COMPARISON: March 08, 2025. FINDINGS: Cardiovascular and mediastinum: Heart size and vasculature are normal in caliber and appearance. Lungs and pleural spaces: Persistent trace right midlung airspace disease. No sign of pleural effusion. No pneumothorax. Bones and soft tissues: No significant findings. IMPRESSION: Persistent trace right midlung airspace disease, likely infectious/inflammatory in etiology. No large focal consolidations. Dictated by Bj Allen MD @ 03/11/2025 7:32:20 PM See patient discharge plan for further discussion Stay well hydrated. Consider sleeping under the mist of a cool mist humidifier. Menthol vapors might be helpful. Prescribing a course of prednisone from [facility] as discussed. Take the amoxicillin as 500 mg (1 capsule) 3 times daily for 7 more days. Also from [facility] will be adding doxycycline for broader antibiotic coverage over the same time period. Consider taking probiotics or yogurt over the next couple of weeks. Seen again for persistent and worsening difficulty breathing, increasing chest pain, escalating fever. Medical Records Medical records reviewed: Yes I reviewed the patient's medical records Discharge Plan Discharge Clinical Impression: Community acquired pneumonia, Bronchitis, Laryngitis Patient Disposition: Home w/ Parent or Adult Condition: Stable Additional Instructions: Stay well hydrated. Consider sleeping under the mist of a cool mist humidifier. Menthol vapors might be helpful. Prescribing a course of prednisone from [facility] as discussed. Take the amoxicillin as 500 mg (1 capsule) 3 times daily for 7 more days. Also from [facility] will be adding doxycycline for broader antibiotic coverage over the same time period. Consider taking probiotics or yogurt over the next couple of weeks. Seen again for persistent and worsening difficulty breathing, increasing chest pain, escalating fever. Prescriptions: No Action multivitamin Tablet 1 tab PO QAM magnesium glycinate 100 mg tablet 100 mg PO QDAY amoxicillin 500 mg capsule 1,000 mg PO TID 5 Days Qty: 30 0RF ketoconazole 2 % shampoo 1 applic topical 2XW PRN (Reason: eczema) Qty: 120 2RF levothyroxine 125 mcg tablet 125 mcg PO DAILY Qty: 90 2RF Follow Up/Referrals: Maryam Lacey, [employer] [Primary Care Provider, Family Practice] Stand Alone Forms: Net Transmit & Receive Info Instructions
--- NOTE | 2025-03-11 18:46 | CRLHL7_ITS ---
For Patients: As a result of the Cures Act, medical imaging exams and procedure reports are released immediately into your electronic medical record. You may view this report before your referring provider. If you have questions, please contact your health care provider. INDICATION: Increasing shortness of breath. TECHNIQUE: Chest 2 views. COMPARISON: March 08, 2025. FINDINGS: Cardiovascular and mediastinum: Heart size and vasculature are normal in caliber and appearance. Lungs and pleural spaces: Persistent trace right midlung airspace disease. No sign of pleural effusion. No pneumothorax. Bones and soft tissues: No significant findings. IMPRESSION: Persistent trace right midlung airspace disease, likely infectious/inflammatory in etiology. No large focal consolidations. Dictated by Bj Allen MD @ 03/11/2025 7:32:20 PM (Electronically Signed)
[2025-03-11 20:00] VITALS: BP 111/75; PULSE 78; RESP 16; O2SAT 97
== END 2025-03-11 20:05 | disposition home or self-care (01) ==
PROVIDERS: Emergency Provider Family Medicine; PCP Registered Nurse
DX: J18.9 Pneumonia, unspecified organism (principal); J40 Bronchitis, not specified as acute or chronic; J04.0 Acute laryngitis
CPT/HCPCS: 71046; 99284